=== PATIENT | female | born 1960 | race Caucasian/White ===

== ENCOUNTER → 2021-10-05 10:30 | Outpatient (CLI) | payer OTHER, SELFPAY ==
--- NOTE | ~2021-10-05 | MM_ITS ---
EXAMINATION: MM screening julio cesar BI w jaki HISTORY: Screening mammogram TECHNIQUE: Craniocaudal and mediolateral oblique 3-D tomosynthesis images were obtained and synthetic 2-D images were generated. CAD analysis was submitted and interpreted. COMPARISON: 02/19/2017 diagnostic right mammogram and limited right breast ultrasound 01/24/2017, 06/20/2015 bilateral screening mammogram examinations BREAST PARENCHYMAL COMPOSITION: There are scattered areas of fibroglandular density. FINDINGS: Interval decreased size of previously reported density in the 8:00 location of the right br east since 01/24/2017. There is no evidence of suspicious mass, calcification, or architectural distor tion to suggest malignancy in either breast. There has been no suspicious interval change. IMPRESSION: 1. No mammographic evidence of malignancy. 2. Recommend routine screening mammography in one year. BI-RADS Category 1: Negative Reviewed, dictated and finalized at location A.
== END ==
PROVIDERS: PCP Registered Nurse; Visit Provider Registered Nurse
DX: Z12.31 Encounter for screening mammogram for malignant neoplasm of breast (principal)
CPT/HCPCS: 77063; 77067

== ENCOUNTER 2022-05-22 11:48 | Emergency (ER) | payer OTHER, SELFPAY ==
--- NOTE | ~2022-05-22 | XR_ITS ---
XR abdomen/kub 1V 05/22/2022 12:35 INDICATION: Right flank pain TECHNIQUE: KUB COMPARISON: 12/23/2004 FINDINGS: There is a 5 mm calcification in the right pelvis, suspicious for UPJ stone. Bowel gas russ irving nonobstructive. Moderate colonic fecal loading. No acute osseous abnormality. Lung bases are unre markable. IMPRESSION: 1: 5 mm calcification in the pelvis on the right, suspicious for UPJ stone. Reviewed, dictated and finalized at location A. [employer]
[2022-05-22 11:59] VITALS: BP 154/99; PULSE 70; RESP 16; TEMP 35.7; O2SAT 100
--- NOTE | 2022-05-22 12:44 | ED.FEMALEGU ---
HPI - Female Genitourinary General Chief complaint: Abdominal Pain Stated complaint: ABD/BACK PAIN Time Seen by Provider: 05/22/22 12:10 Source: patient, RN notes reviewed and old records reviewed Mode of arrival: ambulatory Limitations: no limitations History of Present Illness HPI Narrative: 61-year-old female who presents to [facility] with complaints of 4-6 day duration right flank pain with microscopic hematuria. Patient seen her PCP on the May and was placed on Macrobid and she has been on this for 3 day with continued pain to the right flank and radiation of pain to the right abdomen. Patient appears in acute pain with pain rated as 8/10 sharp constant pain. Patient reports that PCP told her that her culture came back negative for infection. MD elicited complaint: flank pain (right) Pertinent past history: other (blood in urine) Onset (ago): day(s) (4-6) Severity scale (1-10): 7 Related Data Home Medications Medication Instructions Recorded Confirmed levetiracetam 500 mg tablet 500 mg PO BID 05/22/22 05/22/22 nitrofurantoin 100 mg PO BID 05/22/22 05/22/22 monohydrate/macrocrystals 100 mg capsule rosuvastatin 40 mg tablet 40 mg PO DAILY 05/22/22 05/22/22 sertraline 50 mg tablet 50 mg PO DIRECTED 05/22/22 05/22/22 Allergies Allergy/AdvReac Type Severity Reaction Status Date / Time levofloxacin Allergy Severe ANAPHALACTIC Verified 05/22/22 11:54 SHOCK Sulfa (Sulfonamide Allergy Severe Difficulty Verified 05/22/22 11:54 Antibiotics) Breathing Review of Systems Review of Systems: CONSTITUTIONAL: Denies fever, chills, or sweats. EYES: Denies visual changes, redness, or discharge. ENT: Denies rhinorrhea, congestion, sore throat, or otalgia. CARDIOVASCULAR: Denies chest pain, palpitations, or edema. RESPIRATORY: Denies cough or dyspnea. GASTROINTESTINAL: Reports that she has right flank pain radiating to right abdominal pain area,no nausea, vomiting, or diarrhea. GENITOURINARY: Denies dysuria no visible hematuria.positive for right CVA tenderness SKIN: Denies rash or itching. MUSCULOSKELETAL: Denies back pain, joint pain, or myalgia. NEUROLOGIC: Denies headache, numbness, or weakness. PSYCHIATRIC:Positive history of anxiety or depression. All systems reviewed & are unremarkable except as noted in HPI and below PMFSH Past Medical History Medical History (Updated 05/22/22 @ 19:39 by Liz Montilla NP) Anxiety and depression Elevated cholesterol Skin cancer BCC excision Surgical History Surgical History (Updated 05/22/22 @ 19:38 by Liz Montilla NP) H/O: hysterectomy Hx of appendectomy Hx of tonsillectomy Family History Family History (Updated 05/22/22 @ 19:50 by Liz Montilla NP) Father Hypertension Heart disease Social History Social History (Updated 05/22/22 @ 19:37 by Liz Montilla NP) Smoking status: Former smoker Alcohol intake: current Alcohol use details: social Substance use type: does not use Gender identity (if verbalized by the patient): Female Comments At time of signature, agree with nursing past medical, surgical, social and family history. There is no relevant family history pertinent to the presenting complaint Exam Narrative: GENERAL: Well-appearing, well-nourished, and in some acute distress. HEAD: Normocephalic, atraumatic. EYES: PERRLA and EOMI. ENT: Nares clear, no rhinorrhea or epistaxis. Mucous membranes moist.TM's normal with good light reflex, throat pink with no lesions or exudates or swelling NECK: Supple.no lymphadenopathy CHEST: Clear to auscultation. No respiratory distress.SAO2 100% on room air HEART: Regular rate and rhythm. No murmur heard. Normal peripheral pulses. ABDOMEN: Soft, tender right abdominal area, nondistended, normal active bowel sounds.right acute flank pain radiating to right abdomen EXTREMITIES: Normal range of motion. No edema. SKIN: Warm, dry, no rash. NEURO: No focal deficits. Amanda
== END 2022-05-22 13:09 | disposition short-term general hospital (02) ==
PROVIDERS: Emergency Provider Registered Nurse; PCP Registered Nurse
DX: N20.1 Calculus of ureter (principal); R10.9 Unspecified abdominal pain; Z87.891 Personal history of nicotine dependence; E78.00 Pure hypercholesterolemia, unspecified; Z85.828 Personal history of other malignant neoplasm of skin; F41.9 Anxiety disorder, unspecified; F32.A Depression, unspecified
CPT/HCPCS: 74018; 81003; 99203; G0463

== ENCOUNTER 2022-05-22 13:26 | Emergency (ER) | payer OTHER, SELFPAY ==
--- NOTE | ~2022-05-22 | CT_ITS ---
EXAMINATION: CT abdomen pelvis wo con DATE: 05/22/2022 18:04 INDICATION: Right flank pain TECHNIQUE: Computed tomography (CT) of the abdomen and pelvis was performed without intravenous contr ast. The dose-length product (DLP) was 196.71 mGy-cm. Automated exposure control and iterative recons truction technique were employed. COMPARISON: 04/25/2005 FINDINGS: The lung bases are clear. The heart size is normal. The liver, spleen, pancreas, gallbladde r, and adrenal glands are normal. The kidneys are unremarkable. No stones are identified in the kidne ys, ureters, or bladder. No hydronephrosis or hydroureter. No pathologically enlarged abdominal or pe lvic lymph nodes are identified. There is no free intraperitoneal gas or evidence of bowel obstructio n. Surgical changes at the cecum are likely related to prior appendectomy. There is a fat-containing umbilical hernia. There is mild lumbar spondylosis. IMPRESSION: 1. No CT correlate for the patient's symptoms. Reviewed, dictated and finalized at location F. [employer] INTERVIEWS INTERN
--- NOTE | 2022-05-22 13:37 | PC.NURSE ---
pt seen ambulating out of department.
--- NOTE | 2022-05-22 13:52 | PC.NURSE ---
pt visualized in dept. pt called for triage.
[2022-05-22 13:54] VITALS: BP 134/91; PULSE 73; RESP 16; TEMP 37.1; O2SAT 95
[2022-05-22 15:37] LABS: Basophils Percent Auto 0.3 % (0.2-1.2); Eosinophils Absolute Auto 0.1 K/mm3 (0-0.3); Eosinophils Percent Auto 1.4 % (0-4.4); Hematocrit 38.8 % (37.0-47.0); Hemoglobin 12.8 g/dL (12.0-15.0); Immature Granulocyte Absolute 0.01 K/mm3 (0.00-0.031); Immature Granulocyte Percent A 0.2 % (0-0.5); Lymphocytes Absolute Auto 2.11 K/mm3 (0.9-3.2); Lymphocytes Percent Auto 33.2 % (18.3-44.2); Mean Corpuscular Volume 90.9 fl (80-100); Mean Platelet Volume 9.7 fl (7.4-10.4); Monocytes Percent Auto 15.1 % (2.6-8.5); Neutrophils Absolute Auto 3.2 K/mm3 (1.3-6.7); Neutrophils Percent Auto 49.8 % (45.5-73.1); Platelet Count Result 255 k/mm3 (150-375); Red Blood Count 4.27 M/mm3 (4.2-5.4); Red Cell Distribution Width 13.3 % (11.5-14.5); White Blood Count 6.4 K/mm3 (4.5-10.0)
[2022-05-22 15:40] LABS: Appearance Urine Clear (Clear); Bilirubin Urine Negative (Negative); Blood Urine 2+ (Negative); Glucose Urine UA Negative (Negative); Ketones Urine Negative (Negative); Leukocyte Esterase Ur Negative LEU/UL (Negative); Nitrate Urine Negative (Negative); Protein Urine 2+ mg/dL (Negative); Specific Grav Ur >= 1.030 (1.001-1.035); Urobilinogen Urine 0.2 mg/dL (<2.0); pH Urine 5.5 (5.0-9.0)
[2022-05-22 15:51] LABS: Alanine Aminotransferase 35 U/L (6-35); Albumin Level 4.6 g/dL (3.5-5.1); Alkaline Phosphatase 103 U/L (38-126); Anion Gap 6 mmol/L (8-16); Aspartate Amino Transferase 39 U/L (14-36); Bilirubin,Total 0.5 mg/dL (0.2-1.3); Blood Urea Nitrogen 13 mg/dL (7-17); Calcium 9.1 mg/dL (8.4-10.2); Carbon Dioxide 29 mmol/L (22-30); Chloride 102 mmol/L (98-107); Estimated CRCL calculation 82 ml/min; Estimated Glomerular Filt Rate > 60; Glucose 97 mg/dL (65-110); Potassium 3.8 mmol/L (3.4-5.0); Sodium 137 mmol/L (137-145)
[2022-05-22 15:53] LABS: Bacteria Urine Trace /hpf; Mucus Urine Rare /lpf; Squamous Epithelial Cell Urine Rare /hpf (Few); WBC Urine 0-3 /hpf
[2022-05-22 15:54] LABS: Add Urine Microscopic? YES; Color Urine Dark Yellow (Yellow)
[2022-05-22] MEDS: SODIUM CHLORIDE 0.9% IV 1,000 ML 999 ML IV CONT (18:10)
--- NOTE | 2022-05-22 18:16 | ED.FEMALEGU ---
HPI - Female Genitourinary General Chief complaint: Urogenital-Female Stated complaint: pain r/t kidney stone Time Seen by Provider: 05/22/22 17:42 History of Present Illness HPI Narrative: 61-year-old female presents to the emergency room for evaluation of right flank pain has been present for 5 days. Patient states she was seen at her PCPs office on Friday was found to have mild hematuria associated with dysuria. Patient was placed on Macrobid and states her symptoms did not improve over the weekend. Follow-up with her PCP today complaining of unresolved symptoms and a KUB was obtained. Per record review, KUB displayed a 5 mm stone possibly in the UPJ. Patient denies nausea or fevers. Related Data Home Medications Medication Instructions Recorded Confirmed levetiracetam 500 mg tablet 500 mg PO BID 05/22/22 05/22/22 nitrofurantoin 100 mg PO BID 05/22/22 05/22/22 monohydrate/macrocrystals 100 mg capsule rosuvastatin 40 mg tablet 40 mg PO DAILY 05/22/22 05/22/22 sertraline 50 mg tablet 50 mg PO DIRECTED 05/22/22 05/22/22 Allergies Allergy/AdvReac Type Severity Reaction Status Date / Time levofloxacin Allergy Severe ANAPHALACTIC Verified 05/22/22 11:54 SHOCK Sulfa (Sulfonamide Allergy Severe Difficulty Verified 05/22/22 11:54 Antibiotics) Breathing Review of Systems Review of Systems: CONSTITUTIONAL: Denies fever, chills, or sweats. EYES: Denies visual changes, redness, or discharge. ENT: Denies rhinorrhea, congestion, sore throat, or otalgia. CARDIOVASCULAR: Denies chest pain, palpitations, or edema. RESPIRATORY: Denies cough or dyspnea. GASTROINTESTINAL: Reports right flank pain GENITOURINARY: Reports dysuria or hematuria. SKIN: Denies rash or itching. MUSCULOSKELETAL: Denies back pain, joint pain, or myalgia. NEUROLOGIC: Denies headache, numbness, dizziness, or weakness. PSYCHIATRIC: Denies anxiety or depression. Exam Narrative: GENERAL: Well-appearing, well-nourished, no physical limitations, and in mild acute distress. HEAD: Normocephalic, atraumatic. EYES: Conjunctivae normal, PERRLA and EOMI. CHEST: Clear to auscultation. No respiratory distress. No wheezes rales or rhonchi. HEART: Regular rate and rhythm. No murmur heard. Normal peripheral pulses. ABDOMEN: Soft, nontender, bloated, normal active bowel sounds. BACK: Right CVA tenderness EXTREMITIES: Normal range of motion. No edema. No clubbing or cyanosis SKIN: Warm, dry, no rash. No noted wounds NEURO: No focal deficits. Alert and oriented x3. MAEW. CN's II-XI intact bilaterally, normal gait PSYCH: Cooperative. Normal mood and affect. Course Vital Signs Vital signs: Vital Signs Temperature 37.1 C 05/22/22 13:54 Pulse Rate 73 05/22/22 13:54 Respiratory Rate 16 05/22/22 13:54 Blood Pressure 134/91 H 05/22/22 13:54 Pulse Oximetry 95 05/22/22 13:54 Oxygen Delivery Room Air 05/22/22 13:54 Temperature 37.1 C 05/22/22 13:54 Pulse Rate 73 05/22/22 13:54 Respiratory Rate 16 05/22/22 13:54 Blood Pressure 134/91 H 05/22/22 13:54 Pulse Oximetry 95 05/22/22 13:54 Oxygen Delivery Room Air 05/22/22 13:54 MDM - Female Genitourinary Medical Records Medical records narrative: Patient presents to the emergency room for evaluation of right flank pain she has had for 5 days. Was seen in her PCPs office and was treated for possible urinary tract infection. Symptoms were not improved after several days of Macrobid. Patient had a KUB outpatient done, which showed a possible pelvic calcification, cannot rule out an obstructing stone in the UPJ. CT scan showed no evidence of an obstructing stone. CT also demonstrated mild to severe stool load. Patient likely constipated, as this is the cause of her symptoms. Lab work was unremarkable. Discussed findings with patient. Will recommend that she go home and take a spoonful of MiraLAX twice daily. Lab Data 05/22/22 15:14 05/22/22 15:14
[2022-05-22] MEDS: HYDROmorphone HCL INJ (*CRX) 1 MG/ML SYR IV PUSH (18:20)
[2022-05-22] MEDS: KETOROLAC 30 MG/ML VIAL (*BKC) IV PUSH (18:44)
[2022-05-22 18:45] VITALS: BP 144/80; PULSE 66; RESP 12; O2SAT 95
[2022-05-22 19:05] VITALS: BP 124/71; PULSE 68; RESP 14; O2SAT 92
== END 2022-05-22 19:10 | disposition home or self-care (01) ==
PROVIDERS: Emergency Medicine; Emergency Provider Nurse Practitioner Family; PCP Registered Nurse
DX: K59.00 Constipation, unspecified (principal)
CPT/HCPCS: 36415; 74018; 74176; 80053; 81001; 81003; 85025; 96361; 96374; 96375; 99284; J1170; J1885; J7030

== ENCOUNTER → 2023-04-03 13:53 | Outpatient (CLI) | payer OTHER, SELFPAY ==
--- NOTE | ~2023-04-03 | MM_ITS ---
EXAMINATION: MM screening julio cesar BI w jaki HISTORY: Screening mammogram, family history of breast cancer in her daughter. TECHNIQUE: Craniocaudal and mediolateral oblique 3-D tomosynthesis images were obtained and synthetic 2-D images were generated. CAD analysis was submitted and interpreted. COMPARISON: 10/05/2021, 02/07/2017, 01/24/2017, 06/10/2015 BREAST PARENCHYMAL COMPOSITION: There are scattered areas of fibroglandular density. FINDINGS: A low-density mass in the lower outer quadrant of the right breast is stable recent compari son and decrease in size when compared to prior mammograms. No suspicious mass, calcification, or arc hitectural distortion are identified in either breast to suggest malignancy. There has been no suspic ious interval change. IMPRESSION: 1. No mammographic evidence of malignancy. 2. Recommend routine screening mammography in one year. BI-RADS Category 2: Benign finding(s). Reviewed, dictated and finalized at location A.
== END ==
PROVIDERS: PCP Registered Nurse; Visit Provider Registered Nurse
DX: Z12.31 Encounter for screening mammogram for malignant neoplasm of breast (principal)
CPT/HCPCS: 77063; 77067

== ENCOUNTER 2024-01-13 14:51 | Emergency (ER) | payer OTHER, SELFPAY ==
[2024-01-13] VITALS (12 sets, daily range): BP systolic 126–148; BP diastolic 75–90; PULSE 72–85; RESP 12–20; TEMP 36.6; O2SAT 90–97
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
--- NOTE | 2024-01-13 14:55 | ECG_ITS ---
Test Date: 2024-01-13 15:05:37 Measurements Intervals [place] Rate: 82 P: 40 ME: 147 QRS: -29 QRSD: 98 T: 19 QT: 373 QTc: 438 Interpretive Statements SINUS RHYTHM BORDERLINE LEFT AXIS DEVIATION [QRS AXIS < -20] INCOMPLETE RIGHT BUNDLE BRANCH BLOCK [90+ ms QRS DURATION, TERMINAL R IN V1/V2, 40+ ms S IN I/aVL/V4/V5/V6] No previous ECG available for comparison Electronically Signed On 01-14-2024 09:22:56 CDT by Cabrera Samano M.D.
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
[2024-01-13 18:07] LABS: Basophils Percent Auto 0.2 % (0.2-1.2); Hematocrit 40.5 % (37.0-47.0); Hemoglobin 13.5 g/dL (12.0-15.0); Immature Granulocyte Absolute 0.06 K/mm3 (0.00-0.031); Immature Granulocyte Percent A 0.7 % (0-0.5); Lymphocytes Absolute Auto 0.99 K/mm3 (0.9-3.2); Lymphocytes Percent Auto 11.2 % (18.3-44.2); Mean Corpuscular HGB Conc 33.3 g/dl (32-36); Mean Platelet Volume 9.2 fl (7.4-10.4); Monocytes Absolute Auto 0.7 K/mm3 (0.1-0.6); Monocytes Percent Auto 7.6 % (2.6-8.5); Neutrophils Absolute Auto 7.1 K/mm3 (1.3-6.7); Neutrophils Percent Auto 80.3 % (45.5-73.1); Platelet Count Result 244 k/mm3 (150-375); Red Cell Distribution Width 13.3 % (11.5-14.5); White Blood Count 8.8 K/mm3 (4.5-10.0)
[2024-01-13] MEDS: ONDANSETRON INJ 4 MG/2 ML VIAL IV PUSH (18:07)
[2024-01-13] MEDS: MORPHINE SULFATE (*CRX) 4 MG/ML INJ IV PUSH ×3 (18:07→23:13)
[2024-01-13 18:18] LABS: Alanine Aminotransferase 28 U/L (6-35); Albumin Level 4.5 g/dL (3.5-5.1); Alkaline Phosphatase 93 U/L (38-126); Anion Gap 10 mmol/L (4-12); Aspartate Amino Transferase 34 U/L (14-36); Bilirubin,Total 0.9 mg/dL (0.2-1.3); Blood Urea Nitrogen 11 mg/dL (7-17); Calcium 9.1 mg/dL (8.4-10.2); Carbon Dioxide 26 mmol/L (22-30); Chloride 99 mmol/L (98-107); Estimated CRCL calculation 81 ml/min; Estimated Glomerular Filt Rate > 60; Glucose 112 mg/dL (65-110); Potassium 3.9 mmol/L (3.4-5.0); Sodium 135 mmol/L (137-145)
[2024-01-13 18:21] LABS: Prothrombin Time 13.6 Seconds (11.1-14.7)
[2024-01-13 18:22] LABS: Partial Thromboplastin Time 23.6 Seconds (22.3-36.8)
[2024-01-13 18:30] LABS: Troponin I < 0.012 ng/mL (0.000-0.034)
--- NOTE | 2024-01-13 20:36 | PC.NURSE ---
[facility] stated they could not take anymore tramas
== END 2024-01-13 23:19 | disposition short-term general hospital (02) ==
PROVIDERS: Emergency Provider Physician Assistant; PCP Registered Nurse
DX: S22.41XA Multiple fractures of ribs, right side, initial encounter for closed fracture (principal); E78.00 Pure hypercholesterolemia, unspecified; F41.9 Anxiety disorder, unspecified; F32.A Depression, unspecified; Z85.828 Personal history of other malignant neoplasm of skin; Z87.891 Personal history of nicotine dependence; Z90.710 Acquired absence of both cervix and uterus; Z79.899 Other long term (current) drug therapy; I45.10 Unspecified right bundle-branch block; V49.40XA Driver injured in collision with unspecified motor vehicles in traffic accident, initial encounter
CPT/HCPCS: 36415; 70450; 71046; 71260; 72125; 74177; 80053; 84484; 85025; 85610; 85730; 93005; 96374; 96375; 96376; 99285; J2270; J2405; Q9967

== ENCOUNTER 2024-03-03 10:49 | Outpatient (CLI) | payer OTHER, SELFPAY ==
--- NOTE | ~2024-03-03 | US_ITS ---
EXAMINATION: US thyroid DATE: 03/03/2024 11:27 INDICATION: Thyroid nodule. TECHNIQUE: Multiple ultrasound images of the thyroid were obtained. COMPARISON: None. FINDINGS: The right thyroid lobe measures 3.4 x 1.3 x 1.3 cm. The left thyroid lobe measures 3.4 x 1.0 x 1.1 c m. In the right thyroid lobe, there is a 12 mm mixed cystic and solid, isoechoic, wider than tall no dule with smooth margin without echogenic foci (TI-RADS TR2). IMPRESSION: 1. Thyroid nodule, likely not clinically significant. No follow-up is needed. Reviewed, dictated and finalized at location A.
== END 2024-03-03 10:50 | disposition home or self-care (01) ==
PROVIDERS: PCP Registered Nurse; Visit Provider Registered Nurse
DX: E04.1 Nontoxic single thyroid nodule (principal)
CPT/HCPCS: 76536

== ENCOUNTER 2024-11-09 07:25 | Outpatient (CLI) | payer OTHER, SELFPAY ==
--- NOTE | ~2024-11-09 | MM_ITS ---
EXAMINATION: MM screening julio cesar BI w jaki HISTORY: Screening TECHNIQUE: Craniocaudal and mediolateral oblique 3-D tomosynthesis images were obtained and synthetic 2-D images were generated. CAD analysis was submitted and interpreted. COMPARISON: Comparison to multiple prior studies sequentially, with oldest reviewed study dated 02/2016. BREAST PARENCHYMAL COMPOSITION: Not Dense: The breasts are almost entirely fatty. FINDINGS: There is no evidence of suspicious mass, calcification, or architectural distortion to sugg est malignancy in either breast. There has been no suspicious interval change. IMPRESSION: 1. No mammographic evidence of malignancy. 2. Recommend routine screening mammography in one year. BI-RADS Category 1: Negative Reviewed, dictated and finalized at location B.
--- OUTSIDE RECORDS SUMMARY | 2024-11-09 07:28 | XMS_ITS | Referral Summary ---
Author Organization [id number] Address [address] [place] [address] Care Team Providers Care Fisher Hand Line Name Role Phone Kristyn Hernandez Unavailable [phone] Kristyn Hernandez Primary Care Provider + Allergies Active Allergy Reactions Criticality Noted Date Comments Adhesive Rash Medium 03/09/2021 Latex Other (See comments) Low 03/18/2017 Levofloxacin Anaphylaxis,Rash,Swelling High 10/04/19 15 Sulfa (Sulfonamide Antibiotics) Rash,Swelling Medium 01/06/2020 Medications aspirin 81 mg enteric coated tablet Take 1 tablet by mouth daily 0 Active atorvastatin (LIPITOR) 40 mg tablet Take 40 mg by mouth [address] (NexIUM) 20 mg capsule Take 20 mg by mouth daily before breakfast Active famotidine (PEPCID) 20 mg tablet Take 20 mg by mouth 2 (two) times a day 0 Active isosorbide mononitrate ER (IMDUR) 30 mg 24 hr tablet Take 15 mg by mouth 0 Active levETIRAcetam (KEPPRA) 500 mg tablet 1 Active nitroglycerin (NITROSTAT) 0.[address] 0.4 mg under the tongue every 5 minutes as needed 0 Active sertraline (ZOLOFT) 50 mg tablet Take 50 mg by mouth daily 1 Active folic acid (FOLVITE) 1 mg tablet Take 1 tablet (1 mg total) by mouth daily 90 tablet 3 2 Active terbinafine (LamiSIL) 250 mg tablet Take 250 mg by mouth daily 2 Active Active Problems Problem Noted Date Diagnosed Date Stable angina 06/08/2020 Dyslipidemia 06/08/2020 Abnormal mammogram of right breast 02/10/2017 Anxiety 10/03/2014 Insomnia 10/03/2014 Seizure 03/13/2011 Immunizations Immunization Administration Dates Next Due Tdap 06/02/2016 Social History Tobacco Use Types Packs/Day Years Used Date Smoking Tobacco: Former Cigarettes Q uit: 2011 AUDIT-C Answer Date Recorded Q1: How often do you have a drink containing alc ohol? 2-3 times a week 01/15/2022 Q2: How many drinks containi ng alcohol do you have on a typical day when you are drinking? 3 or 4 01/15/2022 Q3: How often do you have si x or more drinks on one occasion? 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 Gender Identity Not on file Sexual Orientation Not on file Last Filed Vital Signs Vital Sign Reading Time Taken Comments Blood Pressure 156/83 01/15/2022 1:20 PM CDT Pulse 55 01/15/2022 1:20 PM CDT Temperature 36.3 C (97.3 F) 01/15/2022 11:07 AM CDT Respiratory Rate 15 01/15/2022 1:20 PM CDT Oxygen Saturation 100% 01/15/2022 1:20 PM CDT Inhaled Oxygen Concentration - - Weight 73 kg (161 lb) 01/15/2022 11:07 AM CDT Height 162.6 cm (5' 4) 01/15/2022 11:07 AM CDT Body Mass Index 27.64 01/15/2022 11:07 AM CDT Plan of Treatment Not on file Procedures Procedure Name Priority Date/Time Associated Diagnosis Comments COLONOSCOPY 01/15/2022 12:30 PM CDT HEPATITIS C ANTIBODY Routine 03/09/2021 9:46 AM CDT Polyarthritis with positive rheumatoid factor (HCC) from Last 3 Months or Most Recently Relevant to Health Maintenance Results * COLONOSCOPY (01/15/2022 12:30 PM CDT) Anatomical Region Laterality Modality Other Narrative Procedure Note Howard Jasmine MD - 01/15/2022 12:30 PM CDT ENDOSCOPY LAB Patient Name: Wendy September Procedure Date: 01/15/2022 12:30 PM Admit Type: Outpatient Room: [facility] Date of : 1960 Instrument Name: [id number] Gender: Female Note Status: Finalized Procedure: Colonoscopy Indications: Positive Cologuard test Providers: Howard Jasmine M.D. Referring MD: Suraj Santiago Medicines: Monitored Anesthesia Care Complications: No immediate complications. Estimated blood loss:None. Estimated Blood Loss: Estimated blood loss: none. Procedure: Pre-Anesthesia Assessment: - The risks and benefits of the procedure and the sedation options and risks were discussed with the patient. All questions were answered and informed consent was obtained. The benefits, risks and alternatives of theprocedure and sedation were discussed and informed consentwas obtained. All questions were answered. Please referto the signed informed consent document in the medical record. The scope was passed under direct vision.The Colonoscope was introduced through the anus and advanced to the the cecum, identified by the appendiceal orifice, ileocecal valve and palpation. The colonoscopy was performed without difficulty.The patient tolerated the procedure well. The qualityof the bowel preparation was good. The quality of the bowel preparation was evaluated using the BBPS(Jackson Bowel Preparation Scale) with scores of: RightColon = 3 (entire mucosa seen well with no residualstaining, small fragments of stool or opaque liquid),Transverse Colon = 3 (entire mucosa seen well with no residual staining, small fragments of stool or opaqueliquid) and Left Colon = 3 (entire mucosa seen well with no residual staining, small fragments of stool oropaque liquid). The total BBPS score equals 9. The qualityof the bowel preparation was good. The bowelpreparation used was Miralax via extended prep with split dose instruction. Bowel prep was administered using asplit dose. Findings: Internal hemorrhoids were found during retroflexion. The hemorrhoids were Grade II (internal hemorrhoids that prolapse but reduce spontaneously). The exam was otherwise without abnormality. Impression: - Internal hemorrhoids. - The examination was otherwise normal. - No specimens collected. Recommendation: - Discharge patient to home (via wheelchair). - High fiber diet indefinitely. - Continue present medications. - Repeat colonoscopy in 5 years per protocol. Attending Participation: I personally performed the entire procedure. Howard Jasmine M.D. Howard Jasmine M.D. 01/15/2022 1:03:05 PM Number of Addenda: 0 Note Initiated On: 01/15/2022 12:30 PM Scope In: Scope Out: us Howard Jasmine MD ENDOSCOPY PROCEDURES Final Result * Hepatitis C antibody (03/09/2021 9:46 AM CDT) Hep C Ab Nonreactive Nonreactive [facility] Comment:Antibodies to HCV no t detected. Does NOT exclude the possibility of recent exposure to HCV. Blood 03/09/2021 9:46 AM CDT 03/09/2021 1:28 PM CDT Pepe Haro DO LAB MICROBIOLOGY - GENER AL ORDERABLES Edited Result - Final [facility] [place] [address] from Last 3 Months or Most Recently Relevant to Health Maintenance Insurance [facility] Address: [place] [address] [facility] Address: [address] [place] [address] [facility] [employer] [facility] [facility] Address: [place] [address] Advance Directives For more information, please contact: [phone] * Full Code (Latest Code Status on File) Date Activated Date Inactivated Comments 01/15/2022 11:07 AM 01/15/2022 5:37 PM Care Teams Fisher Hand Line Relationship Specialty Start Date End Date Kristyn Hernandez PA [address] [place] [id number] PCP - General Nurse Practitioner 01/15/22 Kristyn Hernandez PA [address] [place] [address] Referring Physician Nurse Practitioner 12/11/20
--- OUTSIDE RECORDS SUMMARY | 2024-11-09 07:28 | XMS_ITS | Continuity of Care Document ---
Author Organization [facility] Address [address] [facility] [address] [place] [address] Phone Care Team Providers Care Mortgage Clerk Name Role Phone Morris OD, [employer] Unavailable Unavailable Advance Directives Directive Yes / No Effective Date File Name No Information Encounters Encounter Description Practice Location Reason(s) For Visit Diagnoses Date Provider Providers Copied on Encounter [facility], [address], [place], [place], [id number], [place] tel:[phone] [facility] No Information Max-2 4-200 0 Morris OD [employer]. [address] , [address], [place], [address], [place]. tel:[phone] Family History Family Member Type Diagnosis Age At Onset No Information Payers Payer name Insurance type Covered libertarian ID Authoriza tion(s) No Information Social History Type Description Quantity Date Captured Comments Sex Female Smoking Status No Information Chief Complaint And Reason For Visit No Information Reason For Referral Reason For Referral No Information History Of Present Illness Encounter Date Complaint History Of Prese nt Illness No Information Functional Status Date Functional Assessmen t No Information Instructions Date Instruction Additional Infor mation No Information Assessments Type Assessment Date No Information Patient Care Teams Name Effective Dates (start - stop) Status Members No Information
--- OUTSIDE RECORDS SUMMARY | 2024-11-09 07:28 | XMS_ITS | Clinical Summary ---
Author Organization [facility] Address [address] [place] [address] Phone Care Team Providers Care Washer Meat Name Role Phone Kristyn Hernandez PURSE FRAMER Primary Care Provider + Allergies Active Allergy Reactions Criticality Noted Date Comments Latex Other (See Comments) Low 03/18/2017 Levofloxacin Rash,Swelling Low 01/06/2020 Sulfa (Sulfonamide Antibiotics) Rash,Swelling Low 0 01/06/2020 Medications sertraline (ZOLOFT) 50 mg tablet Take 50 mg by mouth daily. Active aspirin (ECOTRIN EC) 81 mg Tablet, Delayed Release (E.C.) TAKE 1 TABLET BY MOUTH EVERY DAY 90 Tablet 3 1 Active clonazePAM (KlonoPIN RAPID DISSOLVE) 0.5 mg Tablet, Rapid DissolveIndicat ions:Episode of confusion Take 1 Tablet (0.5 mg) by mouth 2 times daily as needed for Other (See Comment) (for prolonged seizures or seizure clusters). 6 Tablet 1 3 Active amLODIPine (NORVASC) 5 mg tablet TAKE 0.5 TABLETS BY MOUTH DAILY. 45 Tablet 3 4 Active ezetimibe (ZETIA) 10 mg tablet Take 1 Tablet (10 mg) by mouth daily. 90 Tablet 3 4 Active levETIRAcetam (KEPPRA) 500 mg tabletIndicatio ns:Episode of confusion Take 1 Tablet (500 mg) by mouth 2 times daily. 180 Tablet 4 4 Active rosuvastatin (CRESTOR) 40 mg tablet TAKE 1 TABLET BY MOUTH EVERY DAY 90 Tablet 1 5 Active Active Problems Problem Noted Date Diagnosed Date Stable angina 06/08/2020 Dyslipidemia 06/08/2020 Family history of CABG 06/08/2020 QT prolongation 08/22/2015 Insomnia 10/03/2014 Anxiety 10/03/2014 Seizure 03/13/2011 Encounters Date Type Department Care Team Description 10/26/2024 External Device Data [facility] Provider, Abstract 10/20/2024 External Device Data [facility] Provider, Abstract 10/19/2024 External Device Data [facility] Provider, Abstract 08/31/2024 External Device Data [facility] Provider, Abstract 08/18/2024 External Device Data [facility] Provider, Abstract 08/10/2024 External Device Data [facility] Provider, Abstract 08/10/2024 External Device Data [facility] Provider, Abstract 08/09/2024 External Device Data [facility] Provider, Abstract from Last 3 Months Immunizations Immunization Administration Dates Next Due (ADACEL/BOOSTRIX)(10 YR UP) TDAP VACCINE, 0.5ML, IM 06/02/2016 Family History Medical History Relation Name Comments Heart Surgery Father Heart Attack Maternal Grandfather Alzheimer's Disease Maternal Grandmother Heart Attack Paternal Grandmother Relation Name Status Comments Father Maternal Grandfather Maternal Grandmother Paternal Grandmother Social History Tobacco Use Types Packs/Day Years Used Date Smoking Tobacco: Former Cigarettes Q uit: 06/07/2009 Smokeless Tobacco: Never Tobacco Cessation:Counseling Given: Not Answered Alcohol Use Standard Drinks/Week Comments Yes 0 (1 standard drink = 0.6 oz pur e alcohol) socially Comments No Sex and Gender Information Value Date Recorded Sex Assigned at Not on file Legal Sex Female 2:44 PM CDT Gender Identity Not on file Sexual Orientation Not on file Last Filed Vital Signs Vital Sign Reading Time Taken Comments Blood Pressure 133/80 03/01/2024 1:39 PM CDT Pulse 73 03/01/2024 1:39 PM CDT Temperature 36.7 C (98.1 F) 02/15/2020 6:40 AM CDT Respiratory Rate 16 02/15/2020 9:30 AM CDT Oxygen Saturation 95% 03/01/2024 1:39 PM CDT Inhaled Oxygen Concentration - - Weight 76.2 kg (168 lb) 03/01/2024 1:39 PM CDT Height 162.6 cm (5' 4) 03/01/2024 1:39 PM CDT Body Mass Index 28.84 03/01/2024 1:39 PM CDT Plan of Treatment Upcoming Encounters Date Type Department Care Team (Late st Contact Info) Description 12/07/2024 10:30 AM CDT Office Visit [facility] - [address] [place] [address] 03/01/2025 9:30 AM CDT Office Visit [facility] Neurology [address] [place] [address] Carol Montague MD [address] [place] [address] Health Maintenance Due Date Last Done Comments Pre-Diabetes and Diabetes Screening 1960 BREAST CANCER SCREENING 2001 FIT-DNA Q 3 years 2006 FIT/FOBT Q 1 year 2006 Flex Sig/CT Colonography Q 5 years 2006 ZOSTER VACCINE (1 of 2) 2011 INFLUENZA VACCINE (#1) 2024 DTAP/TDAP/TD VACCINES (2 - T d or Tdap) 06/02/2026 06/02/2016 COLORECTAL SCREENING 01/16/2032 01/15/2022, 01/15/2022, 01/15/2022 Colorectal Cancer Screening 01/16/2032 RSV VACCINE (60+ or ) (1 - 1-dose 75+ series) 2036 Insurance [facility] [employer] HMO Care Teams Washer Meat Relationship Specialty Start Date End Date Kristyn Hernandez NP [address] [place] [phone] PCP - General NURSE PRACTITIONER 12/30/19
--- OUTSIDE RECORDS SUMMARY | 2024-11-09 07:28 | XMS_ITS | Clinical Summary ---
Author Organization [place] [address] [facility] Address [facility] [place] [address] Care Team Providers Care Medical Detailist Name Role Phone Kristyn Hernandez Unavailable [phone] Kristyn Hernandez Primary Care Provider + Allergies [...] Immunization Administration Dates Next Due Tdap 06/02/2016 Surgical History Surgery Date Site/Laterality Comments NECK MASS EXCISION HYSTERECTOMY COLONOSCOPY APPENDECTOMY Medical History Medical History Date Comments Seizure disorder (HCC) History of tobacco use Quit arou nd 2005 Hyperlipidemia History of transfusion Family History Medical History Relation Name Comments Breast cancer Daughter Adenocarcinoma of breast - (Added by TW Conv) Coronary artery disease Father Fami ly history of coronary artery disease - (Added by TW Conv) Relation Name Status Comments Daughter Father Social History Tobacco Use Types Packs/Day Years [...] on file 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 Gender Identity Not on file Sexual Orientation Not on file Obstetrics History Last Filed Vital Signs Vital Sign Reading [...] 01/15/2022 11:07 AM CDT Plan of Treatment Health Maintenance Due Date Last Done Comments Breast Cancer Screening-Mammogram 1960 Depression Screening 1960 Hepatitis B Screening 1979 Regular Well Visit/Exam 18-64 1979 Pneumococcal vaccine <65 (1 of 2 - PCV) 1980 Zoster Vaccine (1 of 2) 2011 Covid-19 Vaccine (3 - season) 02/01/202408/2020, 09/02/2020 Influenza Vaccine (Season Ended) 2025 DTaP/Tdap/Td Vaccine (2 - Td or Tdap) 06/02/202606/2016 Colon Cancer Screening-Colonoscopy 01/16/20322021 Hepatitis C Screening Completed 03/09/2021 Cervical Cancer Screening Discontinued 12/12/2021 Colon Cancer Screening-CT Colonography Discontinued Colon Cancer Screening-DNA Stool Discontinued 01/16/20 Colon Cancer Screening-FIT Discontinued 01/15/2022 Colon Cancer Screening-Sigmoidoscopy Discontinued 12/31 Procedures Procedure Name Priority Date/Time Associated Diagnosis [...] PM CDT ENDOSCOPY LAB Patient Name: Wendy Lew Procedure Date: 01/15/2022 12:30 PM Admit Type: Outpatient Room: [facility] Date of : 1960 Instrument Name: [id number] Gender: Female Note Status: Finalized Procedure: Colonoscopy [...] the bowel preparation was evaluated using the BBPS(Whipple Bowel Preparation Scale) with scores of: RightColon [...] 01/15/2022 12:30 PM Scope In: Scope Out: Howard Jasmine MD ENDOSCOPY PROCEDURES Final Result * Hepatitis C antibody (03/09/2021 9:46 AM CDT) Hep C Ab Nonreactive Nonreactive [facility] Comment:Antibodies to HCV no t detected. Does NOT exclude the possibility of recent exposure to HCV. Blood 03/09/2021 9:46 AM CDT 03/09/2021 1:28 PM CDT us Pepe Haro DO LAB MICROBIOLOGY - GENER AL ORDERABLES Edited Result - Final [facility] Department [place] [address] from Last 3 Months or Most Recently Relevant to Health Maintenance Insurance [facility] Address: [address] [place] [address] [facility]PPO Address: [address] [place] [address] [facility] Address: [address] [place], [place] [id number] Advance Directives For more information, please contact: [phone] * Full Code (Latest Code Status on File) Date Activated Date Inactivated Comments 01/15/2022 11:07 AM 01/15/2022 5:37 PM Care Teams Medical Detailist Relationship Specialty Start Date End Date Kristyn Hernandez PA [address] [place] [address] PCP - General Nurse Practitioner 01/15/22 Kristyn Hernandez PA [address] [place] [address] Referring Physician Nurse Practitioner 12/11/20
== END 2024-11-09 07:26 | disposition home or self-care (01) ==
PROVIDERS: PCP Registered Nurse; Visit Provider Registered Nurse
DX: Z12.31 Encounter for screening mammogram for malignant neoplasm of breast (principal)
CPT/HCPCS: 77063; 77067